=== PATIENT | male | born 1945 | race Caucasian/White ===

== ENCOUNTER → 2017-12-02 | Outpatient (CLI) | payer OTHER ==
--- NOTE | 2017-12-02 11:40 | NM ---
HISTORY: Right upper quadrant pain, nausea Study: Nuclear medicine HIDA scan with ejection fraction Comparison: None Technique: Multiple scintigraphic images of the abdomen were obtained after the intravenous administr ation of 5.6 mCi of technetium labeled Choletec. Following distention of the gallbladder with radiotracer, 8 oz of PO Ensure Plus was administered. An estimated gallbladder ejection fraction was then calculated. Findings: Homogeneous uptake of radiotracer is seen throughout the liver. The intrahepatic biliary ductal syst em is observed normally. The common hepatic and common bile duct appear grossly normal with normal b iliary-bowel transit. The gallbladder is observed to fill normally. After the PO administration of 8 oz Ensure Plus, a gallbladder ejection fraction of 16.1% (normal > 3 5%) was observed. IMPRESSION: Reduced gallbladder ejection fraction of 16.1%, suggestive for gallbladder dyskinesia. Reported By:
--- NOTE | 2017-12-02 13:16 | US ---
HISTORY: Chronic right testicular swelling. No pain. Study: Scrotal ultrasound: Multiplanar ultrasonographic examination of the scrotum and its contents was performed. Comparison: None Findings: Overall examination of the testicles demonstrate them to be of normal size, echogenicity and echotext ure. Vascular flow was documented and symmetric bilaterally. I see no evidence of a varicocele. Right testicle: 4.3 cm in length by 2.7 by 2.6 cm. The epididymis is normal in its appearance. Left testicle: 4.2 cm in length by 2.0 by 2.2 cm. A small intra testicular cyst is noted measuring approximately 6 mm in maximum thickness. There is a large complex hydrocele on the right appearing to have thick septations. This measures at least 6 x 8 3.5 by 6 cm. A small hydrocele is noted on the left. IMPRESSION: 1. Large complex hydrocele on the right having thickened septations. 2. Intrinsically both testicles appear normal and show symmetric vascular flow. 3. Small hydrocele on the left. Reported By:
== END ==
LOC: RAD 08:31
PROVIDERS: ATTEND Internal Medicine
DX: R10.11 Right upper quadrant pain (principal); N50.811 Right testicular pain; N50.812 Left testicular pain; N43.2 Other hydrocele
CPT/HCPCS: 76870; 78227; A9537

== ENCOUNTER 2017-12-21 21:27 | Emergency (ER) | payer OTHER ==
[2017-12-21 21:38] VITALS: BMI 26.6
--- NOTE | 2017-12-21 22:31 | DR.GENAD ---
HPI - PCP Primary Care Physician: CARMEL - HPI Comment HPI Comment: PATIENT HAVE DEMENTIA AND HAVE DIFFICULTY EXPRESSING HIS SYMTOMS. SAID HE DID NOT FEEL GOOD ALL DAY. GETTING WORSE. - Complaint/Symptoms Chief Complaint Doctors Comments: PATIENT ABDOMINAL PAIN, HEADACHE. TOOK MOM. NOT HELPING. Chief Complaint:: PT STATES" HE STARTED COMPLAINING OF NOT FEELING GOOD ALL DAY HE TOOK 2 BIG DOSES OF MOM THIS MORNING" - Nurses notes reviewed Nurses Notes Review: Yes - Source History Provided: Patient - Mode of Arrival Mode of Arrival: Wheelchair - Timing Onset of Chief Complaint: 12/21/17 Came on: Suddenly - Duration Duration: Constant Duration: Days - Severity Severity: Moderate PMH - PMH Past Medical History: Yes Past Medical History: Alzheimers, Dementia, CO, PUD Past Surgical History: Yes Surgical History: Angioplasty/Stents, Tonsillectomy Past Surgical History Comment: BACK - Family History History of Family Medical Conditions: No Family Medical History: Coronary Artery Disease - Social History Have you used tobacco products in the last 12 months: No Does any household member use tobacco: No Alcohol Use: None Lives With: Family Lives Where: Home - infectious screening In the last 2 months have you had wt loss of >10#?: NO Have you had fever, night sweats or hemotysis?: No Have you traveled outside the country in the last 6 months?: No Isolation: Standard ROS - Review of Systems Constitutional: Weakness, Fatigue. negative: Chills, Fever Eyes: negative: Eye Pain, Discharge ENTM: negative: Ear Pain, Nose Discharge, Nose Congestion, Throat Pain Respiratoy: Non-Productive Cough, Short of Breath (ONEXERTION). negative: Productive Cough, Wheezing, Hemoptysis Cardiovascular: negative: Chest Pain Gastrointestinal/Abdominal: Abdominal Pain, Constipation, Nausea. negative: Diarrhea, Vomiting Genitourinary: negative: Hematuria Neurological: Headache, Dizziness Musculoskeletal: Muscle Pain Integumentary: No Symptoms Reported Hematologic/Lymphatic: Easy Bleeding, Easy Bruising Endocrine: No Symptoms Reported All Other Systems: Reviewed and Negative PE - Vital Signs Vitals: Temperature 97.6 F Pulse Rate [Left] 58 Pulse Rate 110 Respiratory Rate 18 Blood Pressure [Right Arm] 119/64 Blood Pressure 144/67 O2 Sat by Pulse Oximetry 98 - General Limitations: Altered Mental Status, Other (DEMENTIA) General Appearance: Alert - Head Head Exam: Normal Inspection - Eyes Eye exam: Normal Appearance - ENT ENT Exam: Normal External Ear Exam External Ear Exam: Normal External Inspection TM/Canal Exam: Bilateral Normal Nose Exam: Normal Nose Exam Mouth Exam: Normal Inspection Throat Exam: Normal Inspection - Neck Neck Exam: Trachea Midline - Chest Chest Inspection: Symmetric Chest Wall Rise - Respiratory Respiratory Exam: Normal Lung Sounds Bilat Respiratory Exam: Bilateral Rhonchi, Lower Rhonchi - Cardiovascular Cardiovascular Exam: Regular Rate, Normal Rhythm, Normal Heart Sounds - Abdominal Exam Abdominal Exam: Normal Bowel Sounds, Soft. negative: Tenderness - Extremities Extremities Exam: Normal Inspection - Back Back Exam: Normal Inspection - Neurologic Neurological Exam: Alert, Other (DEMENTIA) - Psychiatric Psychiatric Exam: Anxious - Skin Skin Exam: Normal Color MDM - Additional Information Additional Information Obtained From: Family - Differential Diagnosis Differential Diagnosis: ABDOMINAL PAIN, BOWEL ONSTRUCTION, DIVERTICULITIS. CVA, SINUSITIS Course - Treatment Treatment: SEE ORDERS. - Education/Counseling Education/Counseling: Patient, Family, Education Educated On: Diagnosis, Needs for Follow Up ROR - Labs Reviewed Laboratory Results Reviewed?: Yes Result Diagrams: 12/21/17 22:44 12/21/17 22:44 Laboratory: WBC 7.4 X10^3/uL (3.6-10.0) 12/21/17 22:44 RBC 4.69 X10^6/uL (4.7-6.0) L 12/21/17 22:44 Hgb 14.9 g/dL (13.5-18.0) 12/21/17 22:44 Hct 41.8 % (42.0-54.0) L 12/21/17 22:44 MCV 89.2 fL (80.0-100.0) 12/21/17 22:44 MCH 31.7 pg (27.0-34.0) 12/21/17 22:44 MCHC 35.6 g/dL (33.0-35.0) H 12/21/17 22:44 RDW 13.0 % (11.6-16.5) 12/21/17 22:44 Plt Count 180 X10^3/uL (150.0-450.0) 12/21/17 22:44 MPV 8.3 fL (7.4-11.0) 12/21/17 22:44 Neut % (Auto) 78.8 % (42.0-75.0) H 12/21/17 22:44 Lymph % (Auto) 11.6 % (21.0-51.0) L 12/21/17 22:44 [place] % (Auto) 7.7 % (0.0-13.0) 12/21/17 22:44 Eos % (Auto) 1.1 % (0.9-2.9) 12/21/17 22:44 Baso % (Auto) 0.8 % (0.2-1.0) 12/21/17 22:44 Neut # (Auto) 5.8 x10^3/uL (2.2-4.8) H 12/21/17 22:44 Lymph # (Auto) 0.9 X10^3/uL (1.3-2.9) L 12/21/17 22:44 [place] # (Auto) 0.6 x10^3/uL (0.3-0.8) 12/21/17 22:44 Eos # (Auto) 0.1 x10^3/uL (0.0-0.2) 12/21/17 22:44 Baso # (Auto) 0.1 X10^3/uL (0.0-0.1) 12/21/17 22:44 Absolute Nucleated RBC 0.0 /100WBC 12/21/17 22:44 Sodium 141 mmol/L (136-145) 12/21/17 22:44 Corrected Sodium 141 mmol/L (136-145) 12/21/17 22:44 Potassium 3.6 mmol/L (3.5-5.1) 12/21/17 22:44 Chloride 105 mmol/L (98-107) 12/21/17 22:44 Carbon Dioxide 24.7 mmol/L (21-32) 12/21/17 22:44 BUN 26 mg/dL (7-18) H 12/21/17 22:44 Creatinine 1.07 mg/dL (0.70-1.30) 12/21/17 22:44 Est GFR (MDRD) Af Amer > 60 (>60) 12/21/17 22:44 Est GFR (MDRD) Non-Af > 60 (>60) 12/21/17 22:44 Glucose 111 mg/dL (65-99) H 12/21/17 22:44 Calcium 8.9 mg/dL (8.5-10.1) 12/21/17 22:44 Corrected Calcium TNP 12/21/17 22:44 Total Bilirubin 0.30 mg/dL (0.2-1.0) 12/21/17 22:44 AST 20 Units/L (15-37) 12/21/17 22:44 ALT 57 Units/L (12-78) 12/21/17 22:44 Alkaline Phosphatase 74 Units/L (46-116) 12/21/17 22:44 Creatine Kinase 55 Units/L (39-308) 12/21/17 22:44 CK-MB (CK-2) < 1.0 ng/mL (0-4.0) 12/21/17 22:44 CK/CKMB % Calc 1.8 % (<4) 12/21/17 22:44 Troponin I < 0.02 ng/mL (0-1.5) 12/21/17 22:44 Total Protein 7.0 g/dL (6.4-8.2) 12/21/17 22:44 Albumin 3.6 g/dL (3.4-5.0) 12/21/17 22:44 Globulin 3.4 g/dL (2.5-4.5) 12/21/17 22:44 Albumin/Globulin Ratio 1.1 Ratio (1.1-2.1) 12/21/17 22:44 Amylase 63 Units/L (25-115) 12/21/17 22:44 Lipase 190 Units/L (73-393) 12/21/17 22:44 Specimen Type Clean catch urine 12/21/17 23:36 Urine Color Yellow (YELLOW) 12/21/17 23:36 Urine Appearance Slightly hazy (CLEAR) 12/21/17 23:36 Urine pH 8.0 (5.0 - 8.0) 12/21/17 23:36 Ur Specific [place] 1.015 (1.000-1.030) 12/21/17 23:36 Urine Protein Negative (NEGATIVE) 12/21/17 23:36 Urine Glucose (UA) Negative (NEGATIVE) 12/21/17 23:36 Urine Ketones Negative (NEGATIVE) 12/21/17 23:36 Urine Occult Blood Negative (NEGATIVE) 12/21/17 23:36 Urine Nitrite Negative (NEGATIVE) 12/21/17 23:36 Urine Bilirubin Negative (NEGATIVE) 12/21/17 23:36 Urine Urobilinogen Normal (NORMAL) 12/21/17 23:36 Ur Leukocyte Esterase 1+ (NEGATIVE) 12/21/17 23:36 Urine RBC 0-2 /HPF (NONE SEEN) 12/21/17 23:36 Urine WBC 0-2 /HPF (NONE SEEN) 12/21/17 23:36 Ur Squamous Epith Cells Rare /HPF (NEGATIVE) 12/21/17 23:36 Amorphous Sediment 1+ /HPF (NEGATIVE) 12/21/17 23:36 Urine Bacteria Trace /HPF (NEGATIVE) 12/21/17 23:36 Ur Culture Indicated? No/not indicated 12/21/17 23:36 - XRAY XRAY Interpreted by: Radiologist XRAY Findings: REPORT DISCUSS WITH PATIENT. - Diagnosis Discharge Problem: Abdominal pain Qualifiers: Abdominal location: generalized Qualified Code(s): R10.84 - Generalized abdominal pain Headache Qualifiers: Headache type: unspecified Headache chronicity pattern: acute headache Intractability: not intractable Qualified Code(s): R51 - Headache - Discharge Plan Disposition: 01 HOME, SELF-CARE Condition: Stable - Follow ups/Referrals Follow ups/Referrals: Miguel Amanda [Primary Care Provider] - 12/23/17 - Instructions Instructions: Abdominal Pain, Adult, [id number], General Headache Without Cause, [id number] Additional Instructions: RETURN TOED IF WORSE.
[2017-12-21 22:53] LABS: BASOPHILS # (AUTO) 0.1 X10^3/uL (0.0-0.1); BASOPHILS % (AUTO) 0.8 % (0.2-1.0); EOSINOPHILS # (AUTO) 0.1 x10^3/uL (0.0-0.2); LYMPHOCYTES # (AUTO) 0.9 X10^3/uL (1.3-2.9); MEAN PLATELET VOLUME 8.3 fL (7.4-11.0); MONOCYTES # (AUTO) 0.6 x10^3/uL (0.3-0.8); WHITE BLOOD COUNT 7.4 X10^3/uL (3.6-10.0)
[2017-12-21 22:58] LABS: EOSINOPHILS % (AUTO) 1.1 % (0.9-2.9); HEMATOCRIT 41.8 % (42.0-54.0); HEMOGLOBIN 14.9 g/dL (13.5-18.0); LYMPHOCYTES % (AUTO) 11.6 % (21.0-51.0); MEAN CORPUSCULAR HEMOGLOBIN 31.7 pg (27.0-34.0); MEAN CORPUSCULAR HGB CONC 35.6 g/dL (33.0-35.0); MEAN CORPUSCULAR VOLUME 89.2 fL (80.0-100.0); MONOCYTES % (AUTO) 7.7 % (0.0-13.0); NEUTROPHILS # (AUTO) 5.8 x10^3/uL (2.2-4.8); NEUTROPHILS % (AUTO) 78.8 % (42.0-75.0); PLATELET COUNT 180 X10^3/uL (150.0-450.0); RED BLOOD COUNT 4.69 X10^6/uL (4.7-6.0)
--- NOTE | 2017-12-21 23:13 | CT ---
HISTORY: Headache. Study: CT brain without contrast Comparison: None. Technique: Multiple axial images of the brain were obtained from the skull base to the vertex without administra tion of IV contrast. Dose reduction techniques including Automated Exposure Control (AEC) and adjust ment of mA and kV were utilized. Findings: Age-related cortical atrophy and chronic small vessel ischemic changes. No acute intraparenchymal hem orrhage or mass can be identified. No extra-axial fluid collections are seen. No alteration in the attenuation of the brain parenchyma can be identified to suggest acute or subacute ischemic change. The ventricular system is symmetric and nondilated. The extracranial structures are grossly unremark able. IMPRESSION: No acute intracranial pathology. If clinically concerned for acute ischemia/infarction, M [place] brain is more sensitive. Reported By:
--- NOTE | 2017-12-21 23:20 | CT ---
HISTORY: Abdominal pain and nausea. Study: CT abdomen and pelvis without contrast Comparison: None. Technique: Multiple axial images of the abdomen and pelvis were obtained from the lung bases to the pubic symphy sis without the administration of IV contrast. Dose reduction techniques including Automated Exposur e Control (AEC) and adjustment of mA and kV were utilized. Findings: Limited study secondary to lack of IV and oral contrast. The visualized portions of the lung bases are unremarkable. Extensive calcifications of the visualize d coronary arteries. Small hiatal hernia. Partially calcified splenic artery aneurysms, the largest measuring 6 mm in greatest dimension. Bilateral simple appearing renal cysts. Vascular calcifications versus nonobstructing bilateral renal nephroliths. The liver, spleen, pancreas, and adrenal glands a re unremarkable in their CT appearance. The gallbladder is unremarkable in its CT appearance. No sig nificant mesenteric lymphadenopathy or stranding can be observed. No free fluid or free air is seen within the abdomen. Limited evaluation of the large and small bowel secondary to collapse and lack o f oral contrast. Scattered diverticulosis without evidence of diverticulitis. The large and small bow el otherwise appear normal. The appendix appears normal. Small fat containing right inguinal hernia. A benign-appearing lipoma is seen within the right gluteus medius muscle. The urinary bladder is matilda sly unremarkable. Degenerative changes of the spine. No aggressive osseous lesions. Vascular calcifi cations of the abdominal aorta and its major branching vessels without evidence of aneurysmal dilatat ion. IMPRESSION: 1. No CT evidence of acute abdominal/pelvic pathology. 2. Other chronic findings as above. Reported By:
[2017-12-21 23:22] LABS: BLOOD UREA NITROGEN 26 mg/dL (7-18); CALCIUM 8.9 mg/dL (8.5-10.1); CARBON DIOXIDE 24.7 mmol/L (21-32); CHLORIDE 105 mmol/L (98-107); COR NA(FOR HYPERGLY) 141 mmol/L (136-145); CREATININE 1.07 mg/dL (0.70-1.30); SODIUM 141 mmol/L (136-145); TROPONIN I < 0.02 ng/mL (0-1.5); eGFR BLACK RACES > 60 (>60); eGFR NON BLACK RACES > 60 (>60)
[2017-12-21 23:26] LABS: ALANINE AMINOTRANSFERASE 57 Units/L (12-78); ALBUMIN 3.6 g/dL (3.4-5.0); ALKALINE PHOSPHATASE 74 Units/L (46-116); AMYLASE 63 Units/L (25-115); ASPARTATE AMINO TRANSFERASE 20 Units/L (15-37); CKMB % 1.8 % (<4); CREATINE KINASE 55 Units/L (39-308); CREATINE KINASE MB < 1.0 ng/mL (0-4.0); LIPASE 190 Units/L (73-393)
[2017-12-21 23:44] LABS: BILIRUBIN,URINE NEGATIVE (NEGATIVE); BLOOD/HEMOGLOBIN,URINE NEGATIVE (NEGATIVE); GLUCOSE, URINE NEGATIVE (NEGATIVE); KETONES,URINE NEGATIVE (NEGATIVE); LEUKOCYTE ESTERASE ,URINE 1+ (NEGATIVE); NITRITES,URINE NEGATIVE (NEGATIVE); PROTEIN,URINE NEGATIVE (NEGATIVE); UROBILINOGEN,URINE NORMAL (NORMAL)
[2017-12-21 23:58] LABS: AMORPHOUS SEDIMENT,UR 1+ /HPF (NEGATIVE); APPEARANCE,URINE SLIGHTLY HAZY (CLEAR); BACTERIA,URINE TRACE /HPF (NEGATIVE); COLOR,URINE YELLOW (YELLOW); RBC,URINE 0-2 /HPF (NONE SEEN); SQUAMOUS EPITHELIAL CELL,UR RARE /HPF (NEGATIVE)
[2017-12-22 00:38] VITALS: BP 119/64
== END 2017-12-22 00:35 | disposition home or self-care (01) ==
LOC: ER 21:27
DX: R10.84 Generalized abdominal pain (principal); R51 Headache
CPT/HCPCS: 36415; 70450; 74176; 80053; 81001; 82150; 82550; 82553; 83690; 84484; 85025; 93005; 99283; 99284

== ENCOUNTER 2018-01-11 07:41 | Day surgery (SDC) | payer OTHER ==
[2018-01-11] MEDS ORDERED: D5 LR 1000 ML 1,000 ML IV ONE (07:43)
[2018-01-11] MEDS ORDERED: ANCEF 1 GM IV PREMIX* 1 GM/50 ML BAG IV ONE ×2 (07:43→08:27)
[2018-01-11] MEDS ORDERED: XYLOCAINE 1% and EPINEPHRINE 1:100,000 ONE (08:30)
[2018-01-11] MEDS ORDERED: MARCAINE 0.25% INJ ONE (08:31)
[2018-01-11] MEDS ORDERED: FENTANYL INJ 250 mcg ONE (08:46)
[2018-01-11 08:47] LABS: BASOPHILS % (AUTO) 0.6 % (0.2-1.0); EOSINOPHILS # (AUTO) 0.1 x10^3/uL (0.0-0.2); EOSINOPHILS % (AUTO) 1.3 % (0.9-2.9); HEMATOCRIT 41.5 % (42.0-54.0); HEMOGLOBIN 14.4 g/dL (13.5-18.0); LYMPHOCYTES # (AUTO) 1.1 X10^3/uL (1.3-2.9); LYMPHOCYTES % (AUTO) 18.4 % (21.0-51.0); MEAN CORPUSCULAR HEMOGLOBIN 31.4 pg (27.0-34.0); MEAN CORPUSCULAR HGB CONC 34.6 g/dL (33.0-35.0); MEAN CORPUSCULAR VOLUME 90.9 fL (80.0-100.0); MEAN PLATELET VOLUME 8.6 fL (7.4-11.0); MONOCYTES # (AUTO) 0.6 x10^3/uL (0.3-0.8); MONOCYTES % (AUTO) 10.2 % (0.0-13.0); NEUTROPHILS # (AUTO) 4.3 x10^3/uL (2.2-4.8); NEUTROPHILS % (AUTO) 69.5 % (42.0-75.0); PLATELET COUNT 167 X10^3/uL (150.0-450.0); RED BLOOD COUNT 4.57 X10^6/uL (4.7-6.0); RED CELL DISTRIBUTION WIDTH 12.9 % (11.6-16.5); WHITE BLOOD COUNT 6.2 X10^3/uL (3.6-10.0)
[2018-01-11 08:54] LABS: BLOOD UREA NITROGEN 23 mg/dL (7-18); CALCIUM 9.1 mg/dL (8.5-10.1); CARBON DIOXIDE 30.1 mmol/L (21-32); CHLORIDE 105 mmol/L (98-107); COR NA(FOR HYPERGLY) 142 mmol/L (136-145); CREATININE 1.12 mg/dL (0.70-1.30); SODIUM 142 mmol/L (136-145); eGFR BLACK RACES > 60 (>60); eGFR NON BLACK RACES > 60 (>60)
[2018-01-11] MEDS ORDERED: ROBINUL ONE (09:19)
[2018-01-11] MEDS ORDERED: ZOFRAN INJ 4 MG VIAL ONE ×2 (09:19→11:20)
[2018-01-11] MEDS ORDERED: XYLOCAINE 2 % (PLAIN) ONE (09:19)
[2018-01-11] MEDS ORDERED: SUPRANE IN ONE (09:19)
[2018-01-11] MEDS ORDERED: DIPRIVAN VIAL ONE (09:19)
[2018-01-11] MEDS ORDERED: NORCURON INJ 10 MG VIAL ONE (09:19)
[2018-01-11] MEDS ORDERED: QUELICIN (OR ANECTINE) ONE (09:19)
[2018-01-11] MEDS ORDERED: VERSED ONE (09:19)
[2018-01-11] MEDS ORDERED: NEOSTIGMINE INJ ONE (09:19)
[2018-01-11] MEDS ORDERED: PERCOCET TAB 5/325 MG PO PRN (10:06)
[2018-01-11] MEDS ORDERED: BENADRYL INJ 50 MG VIAL IVP PRN (10:09)
[2018-01-11] MEDS ORDERED: DILAUDID INJ ONE (10:09)
[2018-01-11] MEDS ORDERED: REGLAN INJ 10 MG VIAL IVP PRN (10:09)
[2018-01-11] MEDS ORDERED: ZOFRAN INJ 4 MG VIAL IVP PRN (10:09)
[2018-01-11] MEDS ORDERED: PHENERGAN INJ 25 MG IVP PRN (10:09)
[2018-01-11] MEDS: DILAUDID INJ IVP PRN ×2 (10:11→10:16)
--- NOTE | 2018-01-11 10:12 | OR.GENERIC ---
Post-Op Note Generic - Post-Op Note Operative Report: Operative Report Date of Operation: January 11, 2018 Pre-Operative Diagnosis: Biliary dyskinesia. Post-Operative Diagnosis: 1. Mild chronic cholecystitis. 2. Biliary dyskinesia. Procedure: Laparoscopic cholecystectomy. Surgeon: Braden Duong MD. Die Casting Machine Maintainer: Razia Nguyen CRNA. Specimen: Gallbladder. Estimated blood loss: Minimal. Complications: None. Summary: The patient is a 72 year old male who presented with biliary dyskinesia. The patient was offered cholecystectomy. The risk and benefits of the procedure including difficulty with anesthesia, bleeding, infection, conversion to open procedure, bile leak, hernia formation, DVT, as well as PE were discussed with the patient. The patient understood these risks and requested the procedure. On January 11, 2018, the patient was brought to the operative theatre. A time out was performed verifying the patient and procedure. The patient received Ancef for pre-operative antibiosis. After satisfactory induction of general endotracheal anesthesia, the abdomen was prepped with Chloraprep and draped in the usual sterile fashion. The skin and subcutaneous tissue inferior to the umbilicus was anesthetized using local anesthetic. The skin was incised sharply. A 12 mm trocar was placed though the incision and into the peritoneal cavity using the Optiview technique. Carbon dioxide was infiltrated through this trocar to obtain a pneumoperitoneum of 15 mm Hg. A camera was placed through this trocar and swept in all directions. No injury was seen from entering the peritoneal cavity. A site was selected in the subxiphoid location for our 2nd trocar. The skin and fascia was anesthetized using local anesthetic. The skin was incised sharply. A 5 mm trocar was placed into the peritoneal cavity under direct visualization. In a similar manner, two additional 5 mm trocars were placed. The first was placed in the mid- clavicular line approximately 2 fingerbreadths inferior to the left costal margin and a second in the anterior axillary line approximately 2 fingerbreadths inferior to the left costal margin. The patient was placed in reverse Trendelenburg and rotated to the patients left. The gallbladder was grasped at the fundus and elevated cephalad and slightly lateral. The peritoneum on the medial and lateral aspects of the infundibulum of the gallbladder was scored using hook electrocautery. Using blunt dissection, the cystic artery and duct were isolated. The critical view of safety was obtained. Both of these structures were divided between endoclips. The gallbladder was dissected free using hook electrocautery. A posterior cystic artery was isolated and divided between clips before freeing the gallbladder completely. The gallbladder was placed in an endobag and removed through the umbilical trocar site without difficulty. The trocar and camera were placed back inside the abdomen. Our clips were noted in good position. Bleeding of the gallbladder fossa was controlled using electrocautery. At this point, the 5 mm trocars were removed under direct visualization. No bleeding was seen. The umbilical trocar was then removed and pneumoperitoneum released. The fascia at the umbilicus was closed using a 0-Vicryl placed in a [id number] configuration. The skin edges at all incisions were re-approximated using inverted, interrupted 4-0 Monocryl sutures. Mastisol and Steri-strips were placed. Sterile dressings were placed. The patient was awakened and taken to the recovery room in stable condition. There were no complications. All counts were correct.
[2018-01-11 11:49] VITALS: BP 141/82
== END 2018-01-11 11:49 | disposition home or self-care (01) ==
LOC: SURG1 07:41
PROVIDERS: ATTEND Student in an Organized Health Care Education/Training Program
PROC: 0FT44ZZ Resection of Gallbladder, Percutaneous Endoscopic Approach (ICD-10-PCS; principal; 2018-01-11 08:30)
DX: K82.8 Other specified diseases of gallbladder (principal); K81.1 Chronic cholecystitis
CPT/HCPCS: 36415; 80048; 85025; 85610; 85730; 99100; A4216; A4222; S0020; J0330; J0690; J1170; J2001; J2250; J2405; J2710; J3010; J3490; J7120

== ENCOUNTER 2020-09-23 13:56 | Inpatient (IN) ==
[2020-09-23 14:13] VITALS: BMI 25.0
--- NOTE | 2020-09-23 15:47 | DR.URIAD ---
HPI Time Seen Time Seen by Provider: 09/23/20 15:47 PCP Primary Care Physician: JUNIOR BURT / FIDEL REN HPI Comment HPI Comment: PATIENT IS 74YR OLD FEMALE IN ER WITH COUGH, CONGESTION AND GENERALIZED WEAKNESS. COUGH IS NON PRODUCTIVE. SYMPTOMS STARTED TODAY. DENIES FEVER. HE WOKE UP SWEATY. NO DYSURIA. DENIES EXPOSURE TO COVID 19 VIRUS POSITIVE PATIENT. Complaint Chief Complaint Doctors Comments: COUGH, CONGESTION AND SWEATING NOTED TODAY. Chief Complaint:: "WOKE UP THIS AM AND WET FROM SWEATING, CONGESTED AND COUGHING, NON PRODUCTIVE, " Self Treatment fo Chief Complaint: ROBITUSSIN COVID-19 Coronavirus risk:travel/contact w/high risk person: No Has patient experienced Coronavirus symptoms: No Reviewed Nurses Notes Reviewed: Yes Source History Provided: Significant Other Mode of Arrival Mode of Arrival: Wheelchair Timing Onset of Chief Complaint: 09/23/20 Context Recent Treated Infections: None History of Respiratory: None Quality Quality of Cough: Nonproductive Rhinorrhea: None Shortness of Breath: none Associated Signs and Symptoms Other Signs and Symptoms: Cough and URI PMH PMH Past Medical History: Yes Past Medical History: Alzheimers, Arthritis and [place] Past Medical History Comment: 6 OR 8 STENTS Past Surgical History: Yes Surgical History: Cholecystectomy, Ortho Surgery and Tonsillectomy Past Surgical History Comment: 6 OR 8 STENTS, BACK, NECK, Family History History of Family Medical Conditions: Yes Family Medical History: Diabetes Mellitus, [place], Coronary Artery Disease, Heart Failure and Sudden Cardiac Social History Does patient currently use any type of tobacco product: No Have you used tobacco products in the last 12 months: No Does any household member use tobacco: No Alcohol Use: None Do you use any recreational Drugs:: No Lives With: Spouse Lives Where: Home Travel Risk Coronavirus risk:travel/contact w/high risk person: No Has patient experienced Coronavirus symptoms: No Infectious screening In the last 2 months have you had wt loss of >10#?: NO Have you had fever, night sweats or hemotysis?: No Have you traveled outside the country in the last 6 months?: No Isolation: Droplet ROS Review of Systems Constitutional: See HPI, Diaphoresis, Weakness and Fatigue Eyes: No Symptoms Reported and See HPI ENTM: See HPI and Nose Congestion; negative Nose Discharge Respiratoy: See HPI and Non-Productive Cough; negative Short of Breath and Wheezing Cardiovascular: No Symptoms Reported and See HPI; negative Chest Pain Gastrointestinal/Abdominal: No Symptoms Reported and See HPI; negative Abdominal Pain, Diarrhea and Vomiting Genitourinary: No Symptoms Reported and See HPI; negative Dysuria and Hematuria Neurological: See HPI and Weakness; negative Headache and Dizziness Musculoskeletal: No Symptoms Reported and See HPI; negative Back Pain and Muscle Pain Integumentary: No Symptoms Reported and See HPI; negative Change in Color, Rash and Juandice Hematologic/Lymphatic: No Symptoms Reported and See HPI; negative Easy Bruising and Swollen Glands Endocrine: No Symptoms Reported and See HPI; negative Increased Thirst and Increased Urine Psychiatric: No Symptoms Reported and See HPI All Other Systems: Reviewed and Negative PE Vital Signs Vitals: Temperature 97.7 F Pulse Rate [Right] 69 Pulse Rate 90 Respiratory Rate 20 Blood Pressure [Right Arm] 192/94 Blood Pressure 105/64 O2 Sat by Pulse Oximetry 96 General Limitations: No Limitations General Appearance: Alert and In No Apparent Distress Head Head Exam: Normal Inspection and Atraumatic Eyes Eye exam: Normal Appearance and PERRL; negative Scleral Icterus and Conjunctival Injection ENT ENT Exam: Normal Exam; negative Normal Oropharynx, Normal External Ear Exam and Mucous Membranes Moist External Ear Exam: Normal External Inspection; negative Mastoid Tenderness TM/Canal Exam: Bilateral: Normal Nose Exam: Normal Nose Exam Mouth Exam: Normal Inspection; negative Lip Swelling and Tongue Swelling Throat Exam: Normal Inspection; negative Tonsillar Erythema, Tonsillomegaly and Tonsillar Exudate Neck Neck Exam: Normal Inspection and Trachea Midline; negative Tenderness and Lymphadenopathy Chest Chest Inspection: Normal Inspection and Symmetric Chest Wall Rise; negative Tenderness Respiratory Respiratory Exam: Normal Lung Sounds Bilat; negative Accessory Muscle Use, Chest Wall Tenderness and Respiratory Distress Respiratory Exam: Bilateral: Rhonchi and Lower: Rhonchi Cardiovascular Cardiovascular Exam: Regular Rate, Normal Rhythm and Normal Heart Sounds; negative Systolic Murmur and Diastolic Murmur Abdominal Exam Abdominal Exam: Normal Inspection, Normal Bowel Sounds and Soft; negative Tenderness Extremeties Extremities Exam: Normal Inspection Back Back Exam: Normal Inspection; negative (R) CVA Tenderness and (L) CVA Tenderness Neurologic Neurological Exam: Alert and Oriented X3; negative Motor Sensory Deficit Psychiatric Psychiatric Exam: Normal Affect and Normal Mood Skin Skin Exam: Warm, Dry, Intact and Normal Color MDM Differential Diagnosis Differential Diagnosis: Pneumonia (WEANESS, DEHYDRATION, UTI, WEAKNEE, COVID 19 VIRUS INFECTION.) COURSE Treatment Treatment: SEE ORDERS. NS 1L IV BOLUS. Consultation Consultation Comments: DISCUSSED PATIENT WITH DR. TOTH AND SHE WILL BE ADMITTED WITH PATIENT. Education/Counseling Education/Counseling: Patient Educated On: Diagnosis and Needs for Follow Up ROR Labs Reviewed Laboratory Results Reviewed?: Yes Result Diagrams: 09/26/20 05:10 09/26/20 05:10 Laboratory: 09/24/20 10:45 Blood Blood Culture - Final 09/24/20 10:40 Blood Blood Culture - Final WBC 6.0 X10^3/uL (3.6-10.0) 09/25/20 05:42 RBC 4.14 X10^6/uL (4.7-6.0) L 09/25/20 05:42 Hgb 12.9 g/dL (13.5-18.0) L 09/25/20 05:42 Hct 38.1 % (42.0-54.0) L 09/25/20 05:42 MCV 91.9 fL (80.0-100.0) 09/25/20 05:42 MCH 31.2 pg (27.0-34.0) 09/25/20 05:42 MCHC 34.0 g/dL (33.0-35.0) 09/25/20 05:42 RDW 13.8 % (11.6-16.5) 09/25/20 05:42 Plt Count 115 X10^3/uL (150.0-450.0) L 09/25/20 05:42 MPV 8.7 fL (7.4-11.0) 09/25/20 05:42 Neut % (Auto) 87.2 % (42.0-75.0) H 09/25/20 05:42 Lymph % (Auto) 6.5 % (21.0-51.0) L 09/25/20 05:42 [place] % (Auto) 6.3 % (0.0-13.0) 09/25/20 05:42 Eos % (Auto) 0.0 % (0.9-2.9) L 09/25/20 05:42 Baso % (Auto) 0 % (0.2-1.0) L 09/25/20 05:42 Neut # (Auto) 5.2 x10^3/uL (2.2-4.8) H 09/25/20 05:42 Lymph # (Auto) 0.4 X10^3/uL (1.3-2.9) L 09/25/20 05:42 [place] # (Auto) 0.4 x10^3/uL (0.3-0.8) 09/25/20 05:42 Eos # (Auto) 0.0 x10^3/uL (0.0-0.2) 09/25/20 05:42 Baso # (Auto) 0.0 X10^3/uL (0.0-0.1) 09/25/20 05:42 Absolute Nucleated RBC 0.0 /100WBC 09/25/20 05:42 D-Dimer 2.19 ug/ml (0.0-0.57) H* 09/24/20 04:25 Sample Site [place] 09/24/20 06:03 ABG pH 7.440 (7.35-7.45) 09/24/20 06:03 ABG pCO2 40.0 mmHg (35.0-45.0) 09/24/20 06:03 ABG pO2 97.0 mmHg (80.0-100.0) 09/24/20 06:03 ABG HCO3 27.2 mmol/L (22-26) H 09/24/20 06:03 ABG O2 Saturation 98.0 % (90-100) 09/24/20 06:03 ABG Base Excess 2.8 mmol/L (-2.0-2.0) H 09/24/20 06:03 [place]ger Test Pos 09/24/20 06:03 A-a Gradient 53.0 mmHg 09/24/20 06:03 FiO2 28.0 09/24/20 06:03 Blood Gas Comments [place] abg well-mtf 09/24/20 06:03 Sodium 147 mmol/L (136-145) H 09/25/20 05:42 Corrected Sodium 148 mmol/L (136-145) H 09/25/20 05:42 Potassium 3.7 mmol/L (3.5-5.1) 09/25/20 05:42 Chloride 111 mmol/L (98-107) H 09/25/20 05:42 Carbon Dioxide 25.7 mmol/L (21-32) 09/25/20 05:42 BUN 28 mg/dL (7-18) H 09/25/20 05:42 Creatinine 1.04 mg/dL (0.70-1.30) 09/25/20 05:42 Est GFR (MDRD) Af Amer > 60 (>60) 09/25/20 05:42 Est GFR (MDRD) Non-Af > 60 (>60) 09/25/20 05:42 Glucose 158 mg/dL (65-99) H 09/25/20 05:42 Calcium 8.7 mg/dL (8.5-10.1) 09/25/20 05:42 Corrected Calcium 10.1 mg/dL (8.5-10.1) 09/25/20 05:42 Magnesium 1.9 mg/dL (1.7-2.9) 09/24/20 04:25 Total Bilirubin 0.30 mg/dL (0.2-1.0) 09/25/20 05:42 AST 17 Units/L (15-37) 09/25/20 05:42 ALT 20 Units/L (12-78) 09/25/20 05:42 Alkaline Phosphatase 49 Units/L (46-116) 09/25/20 05:42 Creatine Kinase 37 Units/L (39-308) L 09/23/20 16:25 CK-MB (CK-2) < 1.0 ng/mL (0-4.0) 09/23/20 16:25 CK/CKMB % Calc 2.7 % (<4) 09/23/20 16:25 Troponin I < 0.02 ng/mL (0-1.5) 09/23/20 16:25 C-Reactive Protein 129.60 mg/L (0-3.0) H 09/25/20 05:42 Total Protein 5.9 g/dL (6.4-8.2) L 09/25/20 05:42 Albumin 2.3 g/dL (3.4-5.0) L 09/25/20 05:42 Globulin 3.6 g/dL (2.5-4.5) 09/25/20 05:42 Albumin/Globulin Ratio 0.6 Ratio (1.1-2.1) L 09/25/20 05:42 Specimen Type Catherized urine 09/24/20 15:04 Urine Color Yellow (YELLOW) 09/24/20 15:04 Urine Appearance Clear (CLEAR) 09/24/20 15:04 Urine pH 5.0 (5.0 - 8.0) 09/24/20 15:04 Ur Specific [place] 1.025 (1.000-1.030) 09/24/20 15:04 Urine Protein 1+ (NEGATIVE) 09/24/20 15:04 Urine Glucose (UA) Negative (NEGATIVE) 09/24/20 15:04 Urine Ketones 1+ (NEGATIVE) 09/24/20 15:04 Urine Occult Blood Negative (NEGATIVE) 09/24/20 15:04 Urine Nitrite Negative (NEGATIVE) 09/24/20 15:04 Urine Bilirubin Negative (NEGATIVE) 09/24/20 15:04 Urine Urobilinogen Normal (NORMAL) 09/24/20 15:04 Ur Leukocyte Esterase Negative (NEGATIVE) 09/24/20 15:04 Urine RBC 3-5 /HPF (0-3) A 09/24/20 15:04 Urine WBC 0-2 /HPF (0-5) 09/24/20 15:04 Ur Squamous Epith Cells Few /HPF (NEGATIVE) 09/24/20 15:04 Urine Bacteria Trace /HPF (NEGATIVE) 09/24/20 15:04 Hyaline Casts Few /LPF (NEGATIVE) 09/24/20 15:04 Urine Mucus Few /HPF (NEGATIVE) 09/24/20 15:04 Ur Culture Indicated? No/not indicated 09/24/20 15:04 Influenza Type A (PCR) Negative (NEGATIVE) 09/23/20 16:00 Influenza Type B (PCR) Negative (NEGATIVE) 09/23/20 16:00 SARS CoV-2 RNA Rapid JYOTI Positive (NEGATIVE) A 09/23/20 16:00 XRAY XRAY Interpreted by: Radiologist (REPORT NOTED AND DISCUSSED WITH PATIENT.) and Self EKG Rate: 93 [place]: LAD Rhythm: NSR Block: IVCD Hypertrophy: LAE ST: Nonsp Opioid Opioid Risk Tool Age ([place] box if 16-45): No History of Preadolescent Sexual Abuse: No Total: 0 Total Score Risk Category: Low Risk Copyright: Ferguson predicting aberrant behaviors Diagnosis Discharge Problem: Acute dehydration, Acute respiratory distress, COVID-19 virus infection, Generalized weakness Instructions Forms: Precautions for COVID19 Patient Portal Social Distancing
[2020-09-23] MEDS ORDERED: NS 1000 ML 1,000 ML IV ONE (16:07)
[2020-09-23] MEDS ORDERED: NS 1000 ML 1,000 ML ONE (16:39)
[2020-09-23 16:43] LABS: BASOPHILS % (AUTO) 0.1 % (0.2-1.0); EOSINOPHILS % (AUTO) 0.2 % (0.9-2.9); HEMATOCRIT 48.3 % (42.0-54.0); HEMOGLOBIN 15.8 g/dL (13.5-18.0); LYMPHOCYTES # (AUTO) 0.5 X10^3/uL (1.3-2.9); LYMPHOCYTES % (AUTO) 6.7 % (21.0-51.0); MEAN CORPUSCULAR HEMOGLOBIN 30.6 pg (27.0-34.0); MEAN CORPUSCULAR HGB CONC 32.7 g/dL (33.0-35.0); MEAN CORPUSCULAR VOLUME 93.6 fL (80.0-100.0); MONOCYTES # (AUTO) 0.6 x10^3/uL (0.3-0.8); MONOCYTES % (AUTO) 8.8 % (0.0-13.0); NEUTROPHILS # (AUTO) 6.1 x10^3/uL (2.2-4.8); NEUTROPHILS % (AUTO) 84.2 % (42.0-75.0); PLATELET COUNT 121 X10^3/uL (150.0-450.0); RED BLOOD COUNT 5.16 X10^6/uL (4.7-6.0); RED CELL DISTRIBUTION WIDTH 14.1 % (11.6-16.5); WHITE BLOOD COUNT 7.3 X10^3/uL (3.6-10.0)
[2020-09-23 16:55] LABS: BLOOD UREA NITROGEN 35 mg/dL (7-18); CALCIUM 10.3 mg/dL (8.5-10.1); CARBON DIOXIDE 25.5 mmol/L (21-32); CHLORIDE 104 mmol/L (98-107); COR NA(FOR HYPERGLY) 143 mmol/L (136-145); CREATININE 1.38 mg/dL (0.70-1.30); SODIUM 142 mmol/L (136-145); TROPONIN I < 0.02 ng/mL (0-1.5); eGFR NON BLACK RACES 53 (>60)
[2020-09-23 16:59] LABS: ALANINE AMINOTRANSFERASE 22 Units/L (12-78); ALBUMIN 3.4 g/dL (3.4-5.0); ALKALINE PHOSPHATASE 70 Units/L (46-116); ASPARTATE AMINO TRANSFERASE 18 Units/L (15-37); CKMB % 2.7 % (<4); CREATINE KINASE 37 Units/L (39-308); CREATINE KINASE MB < 1.0 ng/mL (0-4.0); TOTAL PROTEIN 7.4 g/dL (6.4-8.2)
--- NOTE | 2020-09-23 18:42 | RAD ---
HISTORYSOBSTUDYCHEST, 1 [id number]/14/2020FINDINGSThe lungs are not well inflated. As result, there are hypoventilatory changes. No evidence for pneumonia or pleural effusion.The heart size is magnified. Vascular calcifications are present compatible with atherosclerosis.Bones are unremarkable.IMPRESSION1. No significant abnormalityElectronically signed by: Fer Mora (Sep 23, 2020 18:40:46)
[2020-09-23 18:54] LABS: ABG ALLEN TEST POS; ABG BASE EXCESS 1.8 mmol/L (-2.0-2.0); ABG HCO3 25.7 mmol/L (22-26)
[2020-09-23] MEDS ORDERED: LAMOTRIGINE 25 MG PO SCH (22:18)
[2020-09-23] MEDS ORDERED: NAMENDA TAB 10 MG PO SCH (22:18)
[2020-09-23] MEDS ORDERED: TUSSIONEX PENNKINETIC SUSP PO PRN (22:18)
[2020-09-23] MEDS ORDERED: BUSPAR ONE (23:01)
[2020-09-23] MEDS ORDERED: NAMENDA TAB 10 MG ONE (23:01)
[2020-09-23] MEDS ORDERED: ABILIFY PO ONE (23:01)
[2020-09-23] MEDS ORDERED: ARICEPT TAB 10 MG ONE (23:01)
[2020-09-23] MEDS ORDERED: ROBITUSSIN DM ONE (23:01)
[2020-09-23] MEDS ORDERED: LAMICTAL TAB 100 MG PO ONE (23:03)
[2020-09-23] MEDS ORDERED: REMERON ONE (23:03)
[2020-09-23] MEDS: BUSPAR PO SCH (23:16)
[2020-09-23] MEDS: ABILIFY PO SCH (23:16)
[2020-09-23] MEDS: ROBITUSSIN DM PO SCH (23:17)
[2020-09-23] MEDS: REMERON PO SCH (23:17)
[2020-09-23] MEDS: NAMENDA TAB 10 MG PO SCH (23:18)
[2020-09-23] MEDS: LAMICTAL TAB 100 MG PO SCH (23:18)
[2020-09-23] MEDS: ARICEPT TAB 10 MG PO SCH (23:18)
[2020-09-23] MEDS: VALPROIC ACID 250 MG PO SCH ×2 (23:48→23:52)
[2020-09-24] MEDS ORDERED: NS 1000 ML 1,000 ML ONE (01:47)
[2020-09-24] MEDS ORDERED: NS 1000 ML 1,000 ML IV SCH ×2 (02:00→03:00)
[2020-09-24] MEDS ORDERED: TRICOR TAB 160 MG PO SCH (03:00)
[2020-09-24] MEDS ORDERED: DECADRON TAB PO SCH (03:00)
[2020-09-24] MEDS ORDERED: ASCORBIC ACID INJ MULTI-DOSE VIAL 1,500 MG in NS 100 ML IV 100 ML IV SCH (03:00)
[2020-09-24] MEDS ORDERED: PEPCID TAB 20 MG PO SCH (03:00)
[2020-09-24] MEDS ORDERED: LOVENOX INJ 30 MG SYR SC SCH ×2 (03:00→11:00)
[2020-09-24] MEDS ORDERED: ZINC SULFATE PO SCH (03:00)
[2020-09-24] MEDS ORDERED: VIBRAMYCIN PO SCH (03:00)
[2020-09-24] MEDS ORDERED: DUONEB 0.5 MG/3 MG (3 mL) NEB PRN (04:42)
[2020-09-24 06:05] LABS: ABG ALLEN TEST POS; ABG BASE EXCESS 2.8 mmol/L (-2.0-2.0); ABG HCO3 27.2 mmol/L (22-26)
[2020-09-24 06:11] LABS: BASOPHILS % (AUTO) 0.3 % (0.2-1.0); EOSINOPHILS % (AUTO) 0.1 % (0.9-2.9); HEMATOCRIT 41.1 % (42.0-54.0); HEMOGLOBIN 13.8 g/dL (13.5-18.0); LYMPHOCYTES # (AUTO) 0.7 X10^3/uL (1.3-2.9); LYMPHOCYTES % (AUTO) 11.8 % (21.0-51.0); MEAN CORPUSCULAR HEMOGLOBIN 31.2 pg (27.0-34.0); MEAN CORPUSCULAR HGB CONC 33.7 g/dL (33.0-35.0); MEAN CORPUSCULAR VOLUME 92.8 fL (80.0-100.0); MEAN PLATELET VOLUME 9.4 fL (7.4-11.0); MONOCYTES # (AUTO) 0.6 x10^3/uL (0.3-0.8); MONOCYTES % (AUTO) 10.8 % (0.0-13.0); NEUTROPHILS # (AUTO) 4.4 x10^3/uL (2.2-4.8); PLATELET COUNT 110 X10^3/uL (150.0-450.0); RED BLOOD COUNT 4.43 X10^6/uL (4.7-6.0); RED CELL DISTRIBUTION WIDTH 14.3 % (11.6-16.5); WHITE BLOOD COUNT 5.7 X10^3/uL (3.6-10.0)
[2020-09-24 06:48] LABS: ALANINE AMINOTRANSFERASE 21 Units/L (12-78); ALBUMIN 2.7 g/dL (3.4-5.0); ALKALINE PHOSPHATASE 57 Units/L (46-116); ASPARTATE AMINO TRANSFERASE 16 Units/L (15-37); BLOOD UREA NITROGEN 33 mg/dL (7-18); CALCIUM 9.1 mg/dL (8.5-10.1); CARBON DIOXIDE 28.1 mmol/L (21-32); CHLORIDE 109 mmol/L (98-107); COR CA(FOR HYPOALB) 10.1 mg/dL (8.5-10.1); COR NA(FOR HYPERGLY) 146 mmol/L (136-145); CREATININE 1.17 mg/dL (0.70-1.30); MAGNESIUM 1.9 mg/dL (1.7-2.9); SODIUM 145 mmol/L (136-145); TOTAL PROTEIN 6.2 g/dL (6.4-8.2); eGFR NON BLACK RACES > 60 (>60)
--- NOTE | 2020-09-24 06:55 | RAD ---
HISTORYSOBSTUDYCHEST, 1 VIEWCOMPARISONOne day prior.TECHNIQUEAP view of the chestFINDINGSCardiac and mediastinal contours are within normal limits. Patchy left perihilar and infrahilar opacity. No large pleural effusion. No pneumothorax. Right costophrenic angle is excluded.IMPRESSIONPatchy left perihilar and infrahilar opacity consistent with pneumonia in the right clinical setting.Electronically signed by: James Vazquez (Sep 24, 2020 06:53:42)
[2020-09-24] MEDS ORDERED: VITAMIN D (1.25MG) PO SCH (09:00)
[2020-09-24] MEDS ORDERED: PROTONIX TAB 40 MG PO SCH (09:00)
[2020-09-24] MEDS ORDERED: VITAMIN A PO SCH (09:00)
[2020-09-24] MEDS ORDERED: IVERMECTIN PO SCH (09:00)
[2020-09-24] MEDS ORDERED: LIPITOR TAB 40 MG PO SCH (09:00)
[2020-09-24] MEDS: DUONEB 0.5 MG/3 MG (3 mL) NEB SCH ×3 (09:15→22:03)
[2020-09-24] MEDS: PULMICORT NEB TX 0.5 MG NEB SCH ×2 (09:15→22:03)
[2020-09-24] MEDS ORDERED: PULMICORT NEB TX 0.5 MG NEB ONE (09:19)
[2020-09-24] MEDS ORDERED: DUONEB 0.5 MG/3 MG (3 mL) NEB ONE ×2 (09:19→14:13)
[2020-09-24] MEDS ORDERED: REMDESIVIR 200 MG in NS 250 ML IV 250 ML IV SCH (10:34)
--- NOTE | 2020-09-24 10:53 | DR.H&P ---
H&P - History & Physical for Day of: H&P Date: 09/23/20 - Chief Complaint Chief Complaint: FEVER, COUGH, CONGESTION - History of Present Illness History of Present Illness: IS A 74 YEAR OLD PATIENT OF OURS. HE PRESENTED TO THE ER WITH COMPLAINTS OF FEVER, NON-PRODUCTIVE COUGH, CONGESTION, AND DIAPHORESIS. SYPTOMS REPORTEDLY STARTED 2-3 DAYS PRIOR TO ARRIVAL AND HAS PROGRESSIVELY GOTTEN WORSE. HER PMH INCLUDES DEMENTIA, ALZHEIMERS, [place], HYPERLIPIDEMIA, SLEEP APNEA, ANXIETY, DEPRESSION, CHOLECYSTECTOMY, AND TONSILLECTOMY. AUSCULTATION OF LUNG [place] REVEALED DIMINISHED LUNG SOUNDS THROUGHOUT. ON ARRIVAL TO THE HOSPITAL, VITALS WERE 98.4-118-20-93%RA-105/64. LABS WERE OBTAINED. ABNORMAL LAB VALUES INCLUDE THE FOLLOWING: PLT COUNT 121, BUN 35, CREATININE 1.38, GLUCOSE 149, CALCIUM 10.3, CREATINE KINASE 37. CARDIAC ENZYMES WERE OTHERWISE WITHIN NORMAL LIMITS. INFLUENZA NEGATIVE. COVID-19 POSITIVE. A CHEST XRAY WAS OBTAINED AND REVEALED: NO SIGNIFICANT ABNORMALITY. EKG REVEALED SINUS RHYTHM WITH HR 93. SHE WAS PLACED ON NASAL CANNULA AT 2 LPM AND HER OXYGEN SATURATIONS INCREASED TO THE UPPER 90s. HE WAS ADMITTED TO THE HOSPITAL FOR FURTHER EVALUATION AND TREATMENT OF ACUTE BRONCHITIS DUE TO COVID- 19, HYPOXIA, AND DEHYDRATION. HE WAS STARTED ON REMDESIVIR 200MG IV X 1 DOSE, THEN 100MG IV DAILY, LEVAQUIN 500MG IV DAILY, ASCORBIC ACID 1500MG IV Q6H, SOLU- MEDROL 80MG IV Q8H, DUONEBS TID, PULMICORT NEBS BID, TUSSIONEX 5ML PO Q12H PRN, ROBITUSSIN DM 10ML PO QID, PROTONIX 40MG IV BID, LOVENOX 30MG SC BID, ZINC 220MG PO DAILY, AND HIS HOME MEDICATIONS WERE RESUMED. WE WILL OBTAIN AN ECHO, D- DIMER, AND A CHEST CTA. OTHERWISE, WE PLAN TO FOLLOW UP WITH AM LABS, CHEST XRAY, ABG, AND CONTINUE TO MONITOR. TIME SPENT ON CLINICAL ASSESSMENT, REVIEWING LABS AND IMAGING, DECISION MAKING AND DOCUMENTATION GREATER THAN 75 MINUTES. - Past Medical History Past Medical History: Alzheimers, Anxiety, Arthritis, Dementia, Depression, Dyslipidemia, [place], Sleep Apnea - Past Surgical History Surgical History: Cholecystectomy, Ortho Surgery, Tonsillectomy - Family History Family Medical History: Diabetes Mellitus, [place], Coronary Artery Disease, Heart Failure, Sudden Cardiac - Social History Does patient currently use any type of tobacco product: No Have you used tobacco products in the last 12 months: No Does any household member use tobacco: No Alcohol Use: None Drug Use: None - Medications Home Medications: No Known Drug Allergies Allergy (Verified 12/21/17 21:29) CONTINUE taking the following medications aripiprazole 10 mg PO BID 09/23/20 [History] buspirone 15 mg PO BID 09/23/20 [History] donepezil 10 mg PO HS 09/23/20 [History] lamotrigine 25 mg PO HS 09/23/20 [History] loratadine [Allergy Relief (loratadine)] 10 mg PO DAILY 09/23/20 [History] meloxicam 15 mg PO DAILY 09/23/20 [History] memantine 10 mg PO BID 09/23/20 [History] mirtazapine 15 mg PO HS 09/23/20 [History] valproic acid 250 mg PO BID 09/23/20 [History] - Review of Systems Constitutional: Fever, Chills, Weakness Eyes: No Symptoms Reported ENT: No Symptoms Reported Respiratory: See HPI, Cough, Shortness of Breath, SOB with Excertion Cardiovascular: No Symptoms Reported Gastrointestinal: No Symptoms Reported Genitourinary: No Symptoms Reported Musculoskeletal: No Symptoms Reported Skin: No Symptoms Reported Neurological: Weakness - Physical Exam Vital Signs: Temperature 99.4 F Pulse Rate [Right] 94 Pulse Rate 85 Respiratory Rate 20 Blood Pressure [Right Arm] 183/77 Blood Pressure 105/64 O2 Sat by Pulse Oximetry 95 Oriented: Normal Eyes: Normal Ear: Normal Nose: Normal Throat: Normal Respiratory: Diminished Throughout Cardiovascular: Normal : Normal Auscultation: Bowel Sounds: Normal Palpation: Normal Tenderness: Normal Skin: Normal Musculoskeletal: Normal Psychiatric: Normal Mood Description: Calm Affect: Normal Speech Pattern: Clear - Assessment/Plan (1) Acute bronchitis due to 2019 novel coronavirus Status: Acute Plan: ADMIT, SUPPLEMENTAL OXYGEN, REMDESIVIR 200MG IV X 1 DOSE, THEN 100MG IV DAILY, LEVAQUIN 500MG IV DAILY, ASCORBIC ACID 1500MG IV Q6H, SOLU-MEDROL 80MG IV Q8H, DUONEBS TID, PULMICORT NEBS BID, TUSSIONEX 5ML PO Q12H PRN, ROBITUSSIN DM 10ML PO QID, PROTONIX 40MG IV BID, LOVENOX 30MG SC BID, ZINC 220MG PO DAILY, AND HIS HOME MEDICATIONS WERE RESUMED, OBTAIN CHEST CTA (2) Hypoxia Status: Acute (3) Dehydration Status: Acute - Allergies Allergies/Adverse Reactions: Allergies Allergy/AdvReac Type Severity Reaction Status Date / Time No Known Drug Allergies Allergy Verified 12/21/17 21:29
[2020-09-24] MEDS ORDERED: NS 100 ML IV 100 ML IV ONE (11:02)
[2020-09-24] MEDS ORDERED: NS 250 ML IV 250 ML IV ONE (11:03)
[2020-09-24] MEDS: ASCORBIC ACID INJ MULTI-DOSE VIAL 1,500 MG in NS 100 ML IV 100 ML IV SCH ×4 (11:59→23:00)
[2020-09-24] MEDS: ABILIFY PO SCH (12:00)
[2020-09-24] MEDS: ZINC SULFATE PO SCH (12:02)
[2020-09-24] MEDS: BUSPAR PO SCH ×2 (12:02→23:30)
[2020-09-24] MEDS: VALPROIC ACID 250 MG PO SCH ×2 (12:02→23:30)
[2020-09-24] MEDS: ROBITUSSIN DM PO SCH ×2 (12:03→13:04)
[2020-09-24] MEDS: VSL#3 PO SCH (12:03)
[2020-09-24] MEDS: CLARITIN PO SCH (12:03)
[2020-09-24] MEDS: MOBIC TAB 15 MG PO SCH (12:03)
[2020-09-24] MEDS: NAMENDA TAB 10 MG PO SCH ×2 (12:04→23:30)
[2020-09-24] MEDS ORDERED: SOLU-Medrol 40 MG VIAL ONE (12:22)
[2020-09-24] MEDS ORDERED: LEVAQUIN PREMIX IV 500 MG 500 MG/100 ML BAG IV ONE (12:22)
[2020-09-24] MEDS ORDERED: PROTONIX INJ 40 MG VIAL ONE (12:22)
[2020-09-24] MEDS: LEVAQUIN PREMIX IV 500 MG 500 MG/100 ML BAG IV SCH (13:00)
[2020-09-24] MEDS: PROTONIX INJ 40 MG VIAL IVP SCH ×2 (13:01→23:30)
--- NOTE | 2020-09-24 13:23 | CT ---
HISTORYSOB, CHEST PAIN, COVID+STUDYCTA CHESTCOMPARISONNoneTECHNIQUEMultiple axial images of the chest were obtained from the thoracic inlet to the upper abdomen after the administration of IV contrast. 3D reconstructions utilizing axial MIPS imaging was performed and reviewed. Dose reduction techniques including Automated Exposure Control (AEC) and adjustment of mA and kV were utilized.FINDINGSThe mediastinum does not demonstrate significant pathological lymphadenopathy. There is no pericardial effusion observed. Coronary arterial calcifications are noted the thoracic aorta is normal in its contour without evidence for aneurysmal dilatation. There are small filling defects noted in the distal right main pulmonary artery extending into the lower and upper lobe branches compatible acute emboli. There also appear to be tiny filling defects in the left lower lobe branches as well.Evaluation of the lung parenchyma demonstrates mild bibasilar consolidation with air bronchograms suggesting associated pneumonia.. No pulmonary nodule or mass can be identified. The bony thorax is unremarkable in its appearance . The visualized portions of the upper abdomen demonstrate small renal cyst.IMPRESSIONBilateral pulmonary emboli as above.Bibasilar consolidation with air bronchograms suggesting pneumonia.Electronically signed by: DAI CALABRESE (Sep 24, 2020 13:21:25)
[2020-09-24] MEDS ORDERED: SOLU-Medrol 40 MG VIAL IVP SCH (14:00)
[2020-09-24] MEDS: IVERMECTIN PO SCH (14:22)
--- NOTE | 2020-09-24 14:22 | VAS ---
HISTORYBIL PESTUDYLOWER EXT VENOUS, BILATERALCOMPARISONNoneTECHNIQUEMultiple fowler scale and color flow Doppler images of the deep venous system were obtained of the right and left lower extremity.FINDINGSThe deep venous system of the right and left lower extremities were evaluated from the level of the common femoral vein through the popliteal vein. Normal color flow and augmentation can be observed. In addition, normal compression is seen throughout the deep venous system.IMPRESSIONNegative for DVT.Electronically signed by: DAI CALABRESE (Sep 24, 2020 14:20:17)
[2020-09-24] MEDS: LOVENOX INJ 40 MG SYR SC SCH (14:42)
[2020-09-24 15:23] LABS: BILIRUBIN,URINE NEGATIVE (NEGATIVE); BLOOD/HEMOGLOBIN,URINE NEGATIVE (NEGATIVE); GLUCOSE, URINE NEGATIVE (NEGATIVE); KETONES,URINE 1+ (NEGATIVE); LEUKOCYTE ESTERASE ,URINE NEGATIVE (NEGATIVE); NITRITES,URINE NEGATIVE (NEGATIVE); PROTEIN,URINE 1+ (NEGATIVE); UROBILINOGEN,URINE NORMAL (NORMAL)
[2020-09-24 15:45] LABS: COLOR,URINE YELLOW (YELLOW)
[2020-09-24 15:46] LABS: APPEARANCE,URINE CLEAR (CLEAR); BACTERIA,URINE TRACE /HPF (NEGATIVE); HYALINE CASTS, URINE FEW /LPF (NEGATIVE); MUCUS,URINE FEW /HPF (NEGATIVE); SQUAMOUS EPITHELIAL CELL,UR FEW /HPF (NEGATIVE)
[2020-09-24] MEDS ORDERED: SOLU-Medrol 125 MG VIAL IVP SCH (21:00)
[2020-09-24] MEDS: LAMICTAL TAB 100 MG PO SCH (23:30)
[2020-09-24] MEDS: ARICEPT TAB 10 MG PO SCH (23:30)
[2020-09-25] MEDS: THIAMINE HCL INJ IVP SCH ×3 (01:30→21:44)
[2020-09-25] MEDS: LOVENOX INJ 40 MG SYR SC SCH ×3 (01:53→21:00)
[2020-09-25] MEDS: ROBITUSSIN DM PO SCH ×6 (02:03→21:46)
[2020-09-25] MEDS: ABILIFY PO SCH ×3 (02:12→21:44)
[2020-09-25] MEDS: REMERON PO SCH ×2 (02:13→21:45)
[2020-09-25] MEDS ORDERED: THIAMINE HCL INJ ONE (02:14)
[2020-09-25] MEDS: ASCORBIC ACID INJ MULTI-DOSE VIAL 1,500 MG in NS 100 ML IV 100 ML IV SCH ×4 (05:35→21:44)
[2020-09-25 06:14] LABS: BASOPHILS % (AUTO) 0 % (0.2-1.0); HEMATOCRIT 38.1 % (42.0-54.0); HEMOGLOBIN 12.9 g/dL (13.5-18.0); LYMPHOCYTES # (AUTO) 0.4 X10^3/uL (1.3-2.9); LYMPHOCYTES % (AUTO) 6.5 % (21.0-51.0); MEAN CORPUSCULAR HEMOGLOBIN 31.2 pg (27.0-34.0); MEAN CORPUSCULAR VOLUME 91.9 fL (80.0-100.0); MEAN PLATELET VOLUME 8.7 fL (7.4-11.0); MONOCYTES # (AUTO) 0.4 x10^3/uL (0.3-0.8); MONOCYTES % (AUTO) 6.3 % (0.0-13.0); NEUTROPHILS # (AUTO) 5.2 x10^3/uL (2.2-4.8); NEUTROPHILS % (AUTO) 87.2 % (42.0-75.0); PLATELET COUNT 115 X10^3/uL (150.0-450.0); RED BLOOD COUNT 4.14 X10^6/uL (4.7-6.0); RED CELL DISTRIBUTION WIDTH 13.8 % (11.6-16.5)
[2020-09-25 06:50] LABS: ALANINE AMINOTRANSFERASE 20 Units/L (12-78); ALBUMIN 2.3 g/dL (3.4-5.0); ALKALINE PHOSPHATASE 49 Units/L (46-116); ASPARTATE AMINO TRANSFERASE 17 Units/L (15-37); BLOOD UREA NITROGEN 28 mg/dL (7-18); CALCIUM 8.7 mg/dL (8.5-10.1); CARBON DIOXIDE 25.7 mmol/L (21-32); CHLORIDE 111 mmol/L (98-107); COR CA(FOR HYPOALB) 10.1 mg/dL (8.5-10.1); COR NA(FOR HYPERGLY) 148 mmol/L (136-145); CREATININE 1.04 mg/dL (0.70-1.30); SODIUM 147 mmol/L (136-145); TOTAL PROTEIN 5.9 g/dL (6.4-8.2); eGFR NON BLACK RACES > 60 (>60)
[2020-09-25] MEDS: DUONEB 0.5 MG/3 MG (3 mL) NEB SCH ×3 (07:11→21:57)
--- NOTE | 2020-09-25 07:45 | RAD ---
HISTORYShortness of breath, pulmonary emboliSTUDYChest AP [id number]/2020 plain film and CTA chestFINDINGSThe heart is within normal limits in size. The memo are normal. The lungs are well inflated. The right lung and left upper lung darling are clear. Infiltrate is present in the retrocardiac area of the left lower lobe slightly improved when compared to the prior examination. Bony thorax is unremarkable.IMPRESSIONImproving left basilar retrocardiac lung infiltrateElectronically signed by: CHRISTA WOLF (Sep 25, 2020 07:41:57)
[2020-09-25] MEDS ORDERED: VITAMIN D3 125 mcg (5,000 UNITS) PO SCH (09:00)
[2020-09-25] MEDS ORDERED: VITAMIN A PO SCH (09:00)
[2020-09-25] MEDS: IVERMECTIN PO SCH (09:15)
[2020-09-25] MEDS: LEVAQUIN PREMIX IV 500 MG 500 MG/100 ML BAG IV SCH (09:15)
[2020-09-25] MEDS: MOBIC TAB 15 MG PO SCH (09:15)
[2020-09-25] MEDS: CLARITIN PO SCH (09:15)
[2020-09-25] MEDS: PROTONIX INJ 40 MG VIAL IVP SCH ×2 (09:15→21:45)
[2020-09-25] MEDS: BUSPAR PO SCH ×2 (09:15→21:45)
[2020-09-25] MEDS: ZINC SULFATE PO SCH (09:15)
[2020-09-25] MEDS: NAMENDA TAB 10 MG PO SCH ×2 (09:15→21:45)
[2020-09-25] MEDS: SOLU-Medrol 125 MG VIAL IVP SCH ×2 (09:15→21:44)
[2020-09-25] MEDS: VSL#3 PO SCH (09:15)
[2020-09-25] MEDS: PULMICORT NEB TX 0.5 MG NEB SCH ×2 (10:05→21:57)
[2020-09-25] MEDS: REMDESIVIR 100 MG in NS 250 ML IV 250 ML IV SCH (10:42)
[2020-09-25] MEDS: VALPROIC ACID 250 MG PO SCH ×2 (15:28→21:45)
[2020-09-25] MEDS: NORCO 5/325 MG TAB PO PRN (16:05)
[2020-09-25] MEDS: ARICEPT TAB 10 MG PO SCH (21:44)
[2020-09-25] MEDS: LAMICTAL TAB 100 MG PO SCH (21:44)
[2020-09-26] MEDS: NORCO 5/325 MG TAB PO PRN (02:47)
[2020-09-26] MEDS: ASCORBIC ACID INJ MULTI-DOSE VIAL 1,500 MG in NS 100 ML IV 100 ML IV SCH ×2 (02:55→10:02)
[2020-09-26 06:10] LABS: BASOPHILS % (AUTO) 0.1 % (0.2-1.0); HEMATOCRIT 41.4 % (42.0-54.0); HEMOGLOBIN 13.7 g/dL (13.5-18.0); LYMPHOCYTES # (AUTO) 0.5 X10^3/uL (1.3-2.9); LYMPHOCYTES % (AUTO) 7.8 % (21.0-51.0); MEAN CORPUSCULAR HEMOGLOBIN 30.5 pg (27.0-34.0); MEAN CORPUSCULAR HGB CONC 33.2 g/dL (33.0-35.0); MEAN CORPUSCULAR VOLUME 92.1 fL (80.0-100.0); MEAN PLATELET VOLUME 9.3 fL (7.4-11.0); MONOCYTES # (AUTO) 0.4 x10^3/uL (0.3-0.8); MONOCYTES % (AUTO) 5.7 % (0.0-13.0); NEUTROPHILS # (AUTO) 5.5 x10^3/uL (2.2-4.8); NEUTROPHILS % (AUTO) 86.4 % (42.0-75.0); PLATELET COUNT 141 X10^3/uL (150.0-450.0); RED CELL DISTRIBUTION WIDTH 13.9 % (11.6-16.5); WHITE BLOOD COUNT 6.4 X10^3/uL (3.6-10.0)
[2020-09-26 06:19] LABS: ALANINE AMINOTRANSFERASE 23 Units/L (12-78); ALBUMIN 2.7 g/dL (3.4-5.0); ALKALINE PHOSPHATASE 54 Units/L (46-116); ASPARTATE AMINO TRANSFERASE 20 Units/L (15-37); BLOOD UREA NITROGEN 25 mg/dL (7-18); CALCIUM 9.5 mg/dL (8.5-10.1); CARBON DIOXIDE 27.6 mmol/L (21-32); CHLORIDE 104 mmol/L (98-107); COR CA(FOR HYPOALB) 10.5 mg/dL (8.5-10.1); COR NA(FOR HYPERGLY) 144 mmol/L (136-145); CREATININE 1.09 mg/dL (0.70-1.30); SODIUM 143 mmol/L (136-145); TOTAL PROTEIN 6.4 g/dL (6.4-8.2); eGFR NON BLACK RACES > 60 (>60)
[2020-09-26] MEDS ORDERED: K-RIDER 10 MEQ/NS 100 ML 10 MEQ/100 ML BAG IV PRN (06:28)
[2020-09-26] MEDS ORDERED: POTASSIUM CHLORIDE LIQ 20 MEQ UDC PO PRN (06:28)
[2020-09-26] MEDS ORDERED: K-DUR TAB 20 MEQ PO PRN (06:28)
[2020-09-26] MEDS ORDERED: POTASSIUM CHL 40 MEQ/NS 0.45% 500 ML IV PRN (06:28)
[2020-09-26] MEDS ORDERED: KLOR-CON PO PRN (06:28)
[2020-09-26] MEDS ORDERED: POTASSIUM CHL 60 MEQ/NS 0.45% 500 ML IV PRN (06:28)
[2020-09-26] MEDS ORDERED: MICRO K EXTEN CAP 10 MEQ PO PRN (06:28)
--- NOTE | 2020-09-26 06:35 | RAD ---
HISTORYSOBSTUDYCHEST, 1 [id number]/29/2020FINDINGSThe trachea is midline. The cardiac silhouette is unremarkable. Mild infiltrate in the retrocardiac region left lower lobe slightly improved.. The bony thorax is unremarkable.IMPRESSIONLeft lower lobe infiltrate slightly improved from previous 09/25/2020Electronically signed by: Ryan Park (Sep 26, 2020 06:33:52)
[2020-09-26] MEDS: DUONEB 0.5 MG/3 MG (3 mL) NEB SCH (06:40)
[2020-09-26] MEDS: ZINC SULFATE PO SCH (08:46)
[2020-09-26] MEDS: ABILIFY PO SCH (08:46)
[2020-09-26] MEDS: VALPROIC ACID 250 MG PO SCH (08:46)
[2020-09-26] MEDS: REMDESIVIR 100 MG in NS 250 ML IV 250 ML IV SCH (08:47)
[2020-09-26] MEDS: VSL#3 PO SCH (08:47)
[2020-09-26] MEDS: THIAMINE HCL INJ IVP SCH (08:47)
[2020-09-26] MEDS: ROBITUSSIN DM PO SCH (08:47)
[2020-09-26] MEDS: MOBIC TAB 15 MG PO SCH (08:48)
[2020-09-26] MEDS: IVERMECTIN PO SCH (08:48)
[2020-09-26] MEDS: NAMENDA TAB 10 MG PO SCH (08:48)
[2020-09-26] MEDS: PROTONIX INJ 40 MG VIAL IVP SCH (08:48)
[2020-09-26] MEDS: CLARITIN PO SCH (08:49)
[2020-09-26] MEDS: BUSPAR PO SCH (08:49)
[2020-09-26] MEDS ORDERED: ELIQUIS PO SCH (09:00)
[2020-09-26] MEDS: PULMICORT NEB TX 0.5 MG NEB SCH (10:15)
[2020-09-26 12:21] VITALS: BP 137/71
== END 2020-09-26 14:05 | DRG 177 ==
LOC: OBS 13:59 → ER 13:59 → OBS 20:36 → MED/SURG 09-25 03:31
PROVIDERS: ADMIT Internal Medicine; ATTEND Obstetrics & Gynecology Obstetrics
DX: I25.2 Old myocardial infarction; E86.0 Dehydration; R79.82 Elevated C-reactive protein (CRP); G30.9 Alzheimer's disease, unspecified; R06.02 Shortness of breath; F02.80 Dementia in other diseases classified elsewhere, unspecified severity, without behavioral disturbance, psychotic disturbance, mood disturbance, and anxiety; J12.89 Other viral pneumonia; R07.89 Other chest pain; R26.89 Other abnormalities of gait and mobility; F41.8 Other specified anxiety disorders; R94.31 Abnormal electrocardiogram [ECG] [EKG]; U07.1 COVID-19; E78.2 Mixed hyperlipidemia